=== PATIENT | female | born 1935 | race Caucasian/White ===

== ENCOUNTER 2022-01-03 12:09 | Emergency (ER) | payer OTHER, SELFPAY ==
[2022-01-03 12:26] VITALS: BP 131/57; PULSE 74; TEMP 36.4; O2SAT 97; BMI 16.1
--- NOTE | 2022-01-03 12:45 | ED.GENADULT ---
HPI - General Adult General Time Seen by Provider: 12:45 Date Seen: 01/03/22 Chief complaint: Nausea/Vomiting Stated complaint: Vomiting from medication Time Seen by Provider: 01/03/22 12:10 Source: patient Mode of arrival: ambulatory Limitations: no limitations History of Present Illness HPI narrative: Patient is a 86-year-old female has started an antibiotic yesterday for urinary tract infection. [facility] She was started on a stronger cephalosporin, she has had only allergies sulfa in the past. Since taking the medicine she felt nauseated vomited. She feels better now on completely back to normal. She is interested in a different antibiotic for urinary tract infection. She states she left a urine and this was analyzed in the clinic. She denies flank pain fever, rigors, chills. She presents with her son. Related Data Home Medications Medication Instructions Recorded Confirmed esomeprazole magnesium 40 mg mg 01/03/22 capsule,delayed release oxycodone 5 mg tablet mg 01/03/22 tramadol 50 mg tablet mg 01/03/22 Previous Rx's Medication Instructions Recorded ciprofloxacin 250 mg/5 mL oral 250 mg (5 mL) PO BID urinary 7 01/03/22 suspension days #70 mL nitrofurantoin 100 mg PO BID #14 caps 01/03/22 monohydrate/macrocrystals 100 mg capsule (Macrobid) Allergies Allergy/AdvReac Type Severity Reaction Status Date / Time Sulfa (Sulfonamide Allergy Unknown Verified 01/03/22 12:30 Antibiotics) Review of Systems Status of ROS: Reports: 6 or more systems reviewed and unremarkable except as noted in History and below PFSH PFS Social History Smoking Status: Never smoker Do you use any of these nicotine containing products: None Second hand tobacco smoke exposure: No How often do you have a drink containing alcohol: never How often do you have six or more drinks on one occasion: Never AUDIT-C Alcohol total score: 0 Non-prescribed substance use: denies use Exam Narrative: Exam Narrative: Objective: Vital signs unremarkable afebrile Abdomen benign soft no flank tenderness Extremities good perfusion Patient is alert orient x3, very thin Const: Vital Signs, click to edit/add: Vital Signs - 24 hr 01/03/22 12:26 Temperature 97.6 F Pulse Rate [Left] 74 Blood Pressure [Ri ght Upper Arm] 131/57 L Pulse Oximetry 97 Oxygen Delivery Me thod Room Air Course Vital Signs Vital signs: Initial Vital Signs Temperature 97.6 F 01/03/22 12:26 Temperature Source Temporal Artery Scan 01/03/22 12:26 Pulse Rate 74 01/03/22 12:26 Blood Pressure 131/57 L 01/03/22 12:26 Blood Pressure Mean 81 01/03/22 12:26 Blood Pressure Position Sitting 01/03/22 12:26 Pulse Oximetry 97 01/03/22 12:26 Oxygen Delivery Method 01/03/22 12:26 Vital Signs Temperature 97.6 F 01/03/22 12:26 Pulse Rate 74 01/03/22 12:26 Blood Pressure 131/57 L 01/03/22 12:26 Pulse Oximetry 97 01/03/22 12:26 Oxygen Delivery Method 01/03/22 12:26 Temperature 97.6 F 01/03/22 13:29 Pulse Rate 74 01/03/22 13:29 Blood Pressure 131/57 L 01/03/22 13:29 Pulse Oximetry 97 01/03/22 12:26 Oxygen Delivery Method 01/03/22 12:26 Medical Decision Making MDM Narrative Medical decision making narrative: Patient a GI upset and vomiting from a cephalosporin orally, at this point could be related to UTI or could be related to the medication. She seems asympt omatic at present. Will give Macrodantin 100 b.i.d. x7 days, will start a dose in the a ER infection of does regimen to her pharmacy. Fluids light diet follow-up with clinic as needed or return to ED as problems or concerns Addendum: The patient is unable to swallow a Macrodantin pill, will see of Cipro can be crushed or in liquid form Discharge Plan Discharge Clinical Impression: Urinary tract infection Patient Disposition: Home w/ Parent or Adult Condition: Stable Additional Instructions: Rest light activity,cipro b.i.d. x7 days, light diet. Update Primary Care as needed, return to ED as needed Activity Level: Light activity Discharge Diet: Low Fat/Low Cholesterol Prescriptions: New nitrofurantoin monohyd/m-cryst [Macrobid] 100 mg capsule 100 mg PO BID Qty: 14 0RF Rx Instructions: must administer with a meal/food ciprofloxacin 250 mg/5 mL suspension,microcapsule recon 250 mg PO BID 7 Days Qty: 70 0RF No Action tramadol 50 mg tablet Label Comments: TAKE 1 TABLET BY MOUTH 3 TIMES DAILY IF NEEDED FOR PAIN. esomeprazole magnesium 40 mg capsule,delayed release(DR/EC) Label Comments: TAKE 1 CAPSULE BY MOUTH EVERY DAY BEFORE A MEAL oxycodone 5 mg tablet Label Comments: TAKE 1 TABLET (5 MG) BY MOUTH EVERY 6 HOURS NEEDED FOR SEVERE PAIN. Follow Up/Referrals: Ngozi Harper MD [Primary Care Provider] - Stand Alone [facility]
[2022-01-03] MEDS: CIPROFLOXACIN 250 MG TABLET PO (13:21)
[2022-01-03 13:29] VITALS: BP 131/57; PULSE 74; TEMP 36.4
== END 2022-01-03 13:30 | disposition home or self-care (01) ==
LOC: ED 13:03
PROVIDERS: Emergency Provider Family Medicine; PCP Family Medicine
DX: N39.0 Urinary tract infection, site not specified (principal)
CPT/HCPCS: 99283; 99284; A9270

== ENCOUNTER 2022-06-30 12:31 | Emergency (ER) | payer OTHER, SELFPAY ==
[2022-06-30 12:55] VITALS: BP 164/81; PULSE 76; RESP 18; TEMP 36.6; O2SAT 94
--- NOTE | 2022-06-30 13:07 | CRLHL7_ITS ---
For Patients: As a result of the Century Cures Act, medical imaging exams and procedure reports are released immediately into your electronic medical record. You may view this report before your referring provider. If you have questions, please contact your health care provider. Indication: Fall Technique: Volumetric multidetector CT images of the head were obtained without the administration of low osmolar intravenous contrast. Comparison: CT head February 02, 2021 Findings: There is no intra-axial or extra-axial fluid collection. There is no mass effect or midline shift. There is age-related cortical atrophy with moderate sulcal widening and ex vacuo dilatation of the lateral ventricles. There are chronic small vessel disease changes in the subcortical and periventricular white matter without lost barker-white differentiation. The orbits and their contents are grossly within normal limits. The bony calvarium is grossly intact. The paranasal sinuses are clear. The mastoid air cells are well aerated. Impression: Stable age-related and chronic small-vessel disease changes of the brain without acute intracranial abnormality. Please note that all CT scans at this facility use dose modulation, iterative reconstruction, and/or weight-based dosing when appropriate to reduce radiation dose to as low as reasonably achievable. Dictated by Geo Ascencio MD @ 06/30/2022 2:42:48 PM (Electronically Signed)
--- NOTE | 2022-06-30 13:07 | CRLHL7_ITS ---
For Patients: As a result of the Century Cures Act, medical imaging exams and procedure reports are released immediately into your electronic medical record. You may view this report before your referring provider. If you have questions, please contact your health care provider. Indication: Injury Technique: A total of three views of the right shoulder were acquired. Comparison: None Findings: Bones: Demineralized osseous structures. No visible acute fracture, dislocation or destructive process. Joint spaces: End-stage arthritic process of the right glenohumeral joint Soft tissues: Unremarkable. Impression: No acute fracture, dislocation or destructive process. 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
--- NOTE | 2022-06-30 13:07 | CRLHL7_ITS ---
For Patients: As a result of the Century Cures Act, medical imaging exams and procedure reports are released immediately into your electronic medical record. You may view this report before your referring provider. If you have questions, please contact your health care provider. INDICATION: Fall TECHNIQUE: Single view pelvis COMPARISONS: Single pelvis October 04, 2018 FINDINGS: The left femoral head is seated in the acetabulum. 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 Mildly limited exam due to pelvic angulation and obliquity. No evidence of obvious acute displaced fracture with likely chronic changes of the left superior inferior pubic rami. Moderate degenerative change of the left hip. Moderate to severe degenerative changes of the partially visualized lumbar spine with severe dextroscoliosis. Moderate to severe stool seen throughout the colon. IMPRESSION: Mildly limited exam due to patient angulation and pelvic tilt. Moderate degenerative change of the left hip. Old traumatic changes of the left superior and inferior pubic rami. Otherwise, no evidence of acute osseous abnormality. Dictated by Geo Ascencio MD @ 06/30/2022 3:01:29 PM (Electronically Signed)
--- NOTE | 2022-06-30 13:10 | ED.GENADULT ---
HPI - General Adult General Time Seen by Provider: 13:10 Date Seen: 06/30/22 Chief complaint: Extremity Pain/Injury, Lower Stated complaint: Fall Time Seen by Provider: 06/30/22 12:35 Source: patient Mode of arrival: wheelchair Limitations: physical limitation History of Present Illness HPI narrative: Patient is an 86 year white female who lives with her son-in-law and daughter. She apparently tripped today and fell she injured the right side of her head she has got a bruise. Over her temporal area. The patient reports right shoulder pain and right hip pain. She apparently has a replacement of the right hip. She has been chronically thin. Has gained weight since she has been with her son-in-law and daughter. She reports that she walks with a walker.. She has had no other specific symptoms recently no chest pain, breathing problem, fevers chills, she simply lost her balance and tripped. Related Data Home Medications Medication Instructions Recorded Confirmed esomeprazole magnesium 40 mg mg 01/03/22 capsule,delayed release oxycodone 5 mg tablet mg 01/03/22 tramadol 50 mg tablet mg 01/03/22 Previous Rx's Medication Instructions Recorded ciprofloxacin 250 mg/5 mL oral 250 mg (5 mL) PO BID urinary 7 01/03/22 suspension days #70 mL nitrofurantoin 100 mg PO BID #14 caps 01/03/22 monohydrate/macrocrystals 100 mg capsule (Macrobid) Allergies Allergy/AdvReac Type Severity Reaction Status Date / Time Sulfa (Sulfonamide Allergy Unknown Verified 01/03/22 12:30 Antibiotics) Review of Systems Status of ROS: Reports: 6 or more systems reviewed and unremarkable except as noted in History and below PFSH PFS Social History Smoking Status: Never smoker Do you use any of these nicotine containing products: None Second hand tobacco smoke exposure: No How often do you have a drink containing alcohol: never How often do you have six or more drinks on one occasion: Never AUDIT-C Alcohol total score: 0 Non-prescribed substance use: denies use service: No Exam Narrative: Exam Narrative: Objective: Patient's vital signs look largely unremarkable slightly of a systolic pressure In general she is cachectic appearing very thin, alert orient x3, no cyanosis HEENT shows a bruise over her right temporal area no palpable step-off, neck is supple nontender, patient denies any loss of conscious with the fall Chest clear Heart rhythm regular 2/6 out murmur occasional ectopic beat noted Abdomen benign soft Pelvis is stable she has got actually fairly full range of motion of her right hip but she complains of some pain in that area complains of pain that radiates a little bit down her thigh as well proximally. Good peripheral perfusion noted Skin warm and dry patient is very cachectic and thin Const: Vital Signs, click to edit/add: Vital Signs - 24 hr 06/30/22 12:55 Temperature 97.8 F Pulse Rate [Right Pulse Oximeter] 76 Respiratory Rate 18 Blood Pressure [Ri ght Upper Arm] 164/81 H Pulse Oximetry 94 Oxygen Delivery Me thod Room Air Course Vital Signs Vital signs: Initial Vital Signs Temperature 97.8 F 06/30/22 12:55 Temperature Source Temporal Artery Scan 06/30/22 12:55 Pulse Rate 76 06/30/22 12:55 Respiratory Rate 18 06/30/22 12:55 Blood Pressure 164/81 H 06/30/22 12:55 Blood Pressure Mean 108 06/30/22 12:55 Blood Pressure Position Sitting 06/30/22 12:55 Pulse Oximetry 94 06/30/22 12:55 Oxygen Delivery Method Room Air 06/30/22 12:55 Vital Signs Temperature 97.8 F 06/30/22 12:55 Pulse Rate 76 06/30/22 12:55 Respiratory Rate 18 06/30/22 12:55 Blood Pressure 164/81 H 06/30/22 12:55 Pulse Oximetry 94 06/30/22 12:55 Oxygen Delivery Method Room Air 06/30/22 12:55 Temperature 97.8 F 06/30/22 12:55 Pulse Rate 76 06/30/22 12:55 Respiratory Rate 18 06/30/22 12:55 Blood Pressure 164/81 H 06/30/22 12:55 Pulse Oximetry 94 06/30/22 12:55 Oxygen Delivery Method Room Air 06/30/22 12:55 Medical Decision Making [facility] Narrative Medical decision making narrative: Patient is an 86 year white female very cachectic, very frail who presents with a fall, mild right-sided head contusion, right shoulder pain and right hip pain. She has an examination that shows very cachectic body, she has limited range of motion right shoulder but it does not appear dislocated, but she has got significant soft tissue loss from cachexia. The patient has some pain in her right hip as well. Will get a x-ray of her right shoulder her pelvis for the right hip, and a head CT scan. This was discussed with the patient and with her son-in-law. Disposition pending findings above Addendum: Patient is feeling okay at this point, she has some right hip discomfort, but she is able to move her hip fairly fully. Her x-ray looks pretty unremarkable though it is a angulated view. Her shoulder x-ray shows severe degenerative change but I do not see any fracture dislocation, his head CT looks largely unremarkable as well. Will await Radiology overreading of her films. Will also get a road test were she is able to see if we can get her to walk on her walker. She was walking earlier. I think she would like to try and go home at this point and her son-in-law feel she can try and go home as well. Disposition pending her ability to walk and assessment of her ambulatory status. Addendum: The patient and her family wanted trying to take her home at this point. Radiology reads no obvious fracture dislocation in her hip, my shoulder review of her x-ray looks unremarkable. Her head CT looks like chronic changes. She was able to walk about 30 ft she had occasional pop walking where she had no discomfort or hip. No discomfort in her leg. Family would like to try and take her home, offered additional x-rays imaging but they declined. Tylenol as needed for discomfort, recheck with primary care as needed. They can use a wheelchair at home for a couple of days and then advanced a walker as tolerated. Discharge Plan Discharge Clinical Impression: Fall Patient Disposition: Home w/ Parent or Adult Condition: Stable Instructions: Fall Prevention (ED) Additional Instructions: Light activity, wheelchair as needed, use a walker when able. Return as needed. Tylenol recommended for discomfort. Activity Level: Light activity Discharge Diet: Regular Prescriptions: No Action tramadol 50 mg tablet Patient Comments: TAKE 1 TABLET BY MOUTH 3 TIMES DAILY IF NEEDED FOR PAIN. esomeprazole magnesium 40 mg capsule,delayed release(DR/EC) Patient Comments: TAKE 1 CAPSULE BY MOUTH EVERY DAY BEFORE A MEAL oxycodone 5 mg tablet Patient Comments: TAKE 1 TABLET (5 MG) BY MOUTH EVERY 6 HOURS NEEDED FOR SEVERE PAIN. nitrofurantoin monohyd/m-cryst [Macrobid] 100 mg capsule 100 mg PO BID Qty: 14 0RF Rx Instructions: must administer with a meal/food ciprofloxacin 250 mg/5 mL suspension,microcapsule recon 250 mg PO BID 7 Days Qty: 70 0RF Follow Up/Referrals: Ngozi Harper MD [Primary Care Provider] - Stand Alone [facility]
== END 2022-06-30 15:29 | disposition home or self-care (01) ==
PROVIDERS: Emergency Provider Family Medicine; PCP Family Medicine
DX: M25.511 Pain in right shoulder (principal); M25.551 Pain in right hip; W01.0XXA Fall on same level from slipping, tripping and stumbling without subsequent striking against object, initial encounter
CPT/HCPCS: 70450; 72170; 73030; 99283; 99284; 99285

== ENCOUNTER 2022-12-07 10:00 | Emergency (ER) | payer OTHER, SELFPAY ==
[2022-12-07 10:14] VITALS: BP 114/69; PULSE 91; RESP 20; TEMP 36.2; O2SAT 96
[2022-12-07 10:49] VITALS: O2SAT 91
--- NOTE | 2022-12-07 11:15 | ED.GENADULT ---
HPI - General Adult General Date Seen: 12/07/22 Chief complaint: Nausea/Vomiting Stated complaint: Vomiting bile Time Seen by Provider: 12/07/22 10:33 Source: patient and family Mode of arrival: ambulatory Limitations: no limitations History of Present Illness HPI narrative: Patient is an 87-year-old woman who apparently had some vomiting yesterday until about 3:00 a.m.. Vomiting has resolved. She has not been doing a good job of rehydrating, she is extremely thin at baseline, I do not think she eats or drinks very much in general. She says she has continued to be nauseated today so she has not taken very much in. They called the clinic and they were advised to bring her in. Her son-in-law who is with her says that she has had some lability of her blood pressures which have varied between 97 systolic and 180 systolic recently. This was of concern to them as well. She has not had diarrhea, no black or bloody stools, no fever, no abdominal pain. She is reportedly dealing with a couple of different skin cancers as well. Related Data Home Medications Medication Instructions Recorded Confirmed esomeprazole magnesium 40 mg mg 01/03/22 capsule,delayed release oxycodone 5 mg tablet mg 01/03/22 tramadol 50 mg tablet mg 01/03/22 erythromycin 5 mg/gram (0.5 %) eye ophthalmic (eye-left) BID 12/07/22 ointment Previous Rx's Medication Instructions Recorded ciprofloxacin 250 mg/5 mL oral 250 mg (5 mL) PO BID urinary 7 01/03/22 suspension days #70 mL nitrofurantoin 100 mg PO BID #14 caps 01/03/22 monohydrate/macrocrystals 100 mg capsule (Macrobid) Allergies Allergy/AdvReac Type Severity Reaction Status Date / Time Sulfa (Sulfonamide Allergy Unknown Verified 01/03/22 12:30 Antibiotics) Review of Systems Status of ROS: Reports: 6 or more systems reviewed and unremarkable except as noted in History and below [facility] Social History Smoking Status: Never smoker Do you use any of these nicotine containing products: None Second hand tobacco smoke exposure: No How often do you have a drink containing alcohol: never How often do you have six or more drinks on one occasion: Never AUDIT-C Alcohol total score: 0 Non-prescribed substance use: denies use service: No Exam Narrative: Exam Narrative: Vital signs reviewed. Of note, the blood pressure cuff on her is a child size, the automatic machine simply cannot get a blood pressure I think due to her cachectic body habitus. Head: Skeletal. 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 ENT: Mucous membranes are little dry Heart: Regular rate and rhythm without murmur Lungs: Clear. Abdomen: Scaphoid, nontender. Extremities: Cachectic. Skin: Warm and dry. Const: Vital Signs, click to edit/add: Vital Signs - 24 hr 12/07/22 10:14 12/07/22 10:49 12/07/22 11:48 Temperature 97.2 F L Pulse Rate [Right Pulse Oximeter] 91 Respiratory Rate 20 Blood Pressure [Le ft Upper Arm] 114/69 106/72 Pulse Oximetry 96 91 Oxygen Delivery Me thod Room Air Course Course ED Course: Will go ahead and check some electrolytes, hydrate her, give some Zofran and make sure that she is able to keep some fluids down. It does not sound as if she is still vomiting, this is self-limited, may be viral, her abdominal exam is benign and given that symptoms have stopped my suspicion for something such as obstruction or other surgical process is low. Will see how labs look before deciding whether imaging is needed. Labs are overall reassuring. Her white blood cell count is normal at 9.3. Hemoglobin is normal. Her initial potassium came back at 6.2 but it was hemolyzed, repeat is 5. Creatinine was normal. CO2 mildly low at 18. She had a L normal saline here. She did not have any vomiting while here. Again, symptoms had resolved prior to coming to the ER. I think it is reasonable to let her go home, continue hydration at home. Discussed if she has worsening symptoms, develops fevers, abdominal pain, recurrence of vomiting she can return to the emergency department at any time. Otherwise follow up with primary care doctor joseline. further concerns. Continue to work on hydration as able at home. Vital Signs Vital signs: Initial Vital Signs Temperature 97.2 F L 12/07/22 10:14 Temperature Source Temporal Artery Scan 12/07/22 10:14 Pulse Rate 91 12/07/22 10:14 Respiratory Rate 20 /11/23 10:14 Blood Pressure 114/69 12/07/22 10:14 Blood Pressure Mean 84 12/07/22 10:14 Blood Pressure Position Sitting 12/07/22 10:14 Pulse Oximetry 96 12/07/22 10:14 Oxygen Delivery Method Room Air 12/07/22 10:14 Vital Signs Temperature 97.2 F L 12/07/22 10:14 Pulse Rate 91 12/07/22 10:14 Respiratory Rate 12/07/22 10:14 Blood Pressure 114/69 12/07/22 10:14 Pulse Oximetry 96 12/07/22 10:14 Oxygen Delivery Method Room Air 12/07/22 10:14 Temperature 97.2 F L 12/07/22 10:14 Pulse Rate 91 12/07/22 10:14 Respiratory Rate 12/07/22 10:14 Blood Pressure 106/72 12/07/22 11:48 Pulse Oximetry 91 12/07/22 10:49 Oxygen Delivery Method Room Air 12/07/22 10:14 Medical Decision Making Lab Data Labs: Lab Results 12/07/22 12/07/22 Range/Units 11:15 12:36 WBC 9.26 (4.50-11.00) K/uL RBC 4.22 (4.00-5.20) m/uL Hgb 14.0 (12.0-16.0) gm/dL Hct 44.6 (33.0-51.0) % MCV 106 H (80-100) fL MCH 33 (26-34) pg MCHC 31 L (32-36) gm/dL RDW Coeff of Jojo 15.7 H (11.5-15.5) % Plt Count 272 (140-440) K/uL Neut % (Auto) 88.2 H (42.0-72.0) % Lymph % (Auto) 5.4 L (20-44) % [place] % (Auto) 5.7 (0.0-11.0) % Eos % (Auto) 0.1 (0.0-7.0) % Baso % (Auto) 0.4 (0.0-3.0) % Neut # (Auto) 8.20 H (1.7-7.0) K/uL Lymph # (Auto) 0.50 L (0.90-2.90) K/uL [place] # (Auto) 0.50 (0.00-0.90) K/UL Eos # (Auto) 0.01 (0.00-0.50) K/uL Baso # (Auto) 0.04 (0.00-0.30) K/uL Abs Immat Gran (auto) 0.02 (0.00-0.30) K/uL Imm/Tot Granulo (auto) 0.2 % Sodium 135 (135-149) mmol/L Potassium 6.2 H* 5.0 (3.6-5.1) mmol/L Chloride 103 (96-114) mmol/L Carbon Dioxide 18 L (20-32) mmol/L Anion Gap 14 (7-15) mEq/L BUN 21 (7-30) mg/dL Creatinine 0.7 (0.5-1.5) mg/dL Estimated GFR 85 ml/min Glucose 97 (60-115) mg/dL Calcium 10.7 H (8.4-10.6) mg/dL Magnesium 2.0 (1.5-2.6) mg/dL Discharge Plan Discharge Clinical Impression: Dehydration Patient Disposition: Home, Self-Care Condition: Improved Instructions: Dehydration (ED) Additional Instructions: Continue to work on hydration at home. Labs today look otherwise pretty good, return if you are not able to maintain hydration, developed significant abdominal pain, fevers, or continued to have vomiting. Prescriptions: No Action tramadol 50 mg tablet Patient Comments: TAKE 1 TABLET BY MOUTH 3 TIMES DAILY IF NEEDED FOR PAIN. esomeprazole magnesium 40 mg capsule,delayed release(DR/EC) Patient Comments: TAKE 1 CAPSULE BY MOUTH EVERY DAY BEFORE A MEAL oxycodone 5 mg tablet Patient Comments: TAKE 1 TABLET (5 MG) BY MOUTH EVERY 6 HOURS NEEDED FOR SEVERE PAIN. nitrofurantoin monohyd/m-cryst [Macrobid] 100 mg capsule 100 mg PO BID Qty: 14 0RF Rx Instructions: must administer with a meal/food ciprofloxacin 250 mg/5 mL suspension,microcapsule recon 250 mg PO BID 7 Days Qty: 70 0RF erythromycin 5 mg/gram (0.5 %) ointment ophthalmic (eye-left) BID Follow Up/Referrals: Ngozi Harper MD [Primary Care Provider] - Stand Alone [facility] Inst[facility]
[2022-12-07] MEDS: 0.9 % SODIUM CHLORIDE 1000 ml 1,000 ML IV (11:22)
[2022-12-07] MEDS: ONDANSETRON 2 MG/ML inj 4 MG IVP (11:22)
--- NOTE | 2022-12-07 11:33 | ED.NURSE ---
MD gave verbal OK for patient to take home dose of Tramadol.
[2022-12-07 11:48] VITALS: BP 106/72
[2022-12-07 11:57] LABS: Basophils Absolute Auto 0.04 K/uL (0.00-0.30); Basophils Percent Auto 0.4 % (0.0-3.0); Eosinophils Absolute Auto 0.01 K/uL (0.00-0.50); Eosinophils Percent Auto 0.1 % (0.0-7.0); Hematocrit 44.6 % (33.0-51.0); Immature Granulocytes Abs Auto 0.02 K/uL (0.00-0.30); Immature Granulocytes Pct Auto 0.2 %; Lymphocytes Percent Auto 5.4 % (20-44); Mean Corpuscular HGB Conc 31 gm/dL (32-36); Mean Corpuscular Hemoglobin 33 pg (26-34); Mean Corpuscular Volume 106 fL (80-100); Monocytes Percent Auto 5.7 % (0.0-11.0); Neutrophils Percent Auto 88.2 % (42.0-72.0); Platelet Count* 272 K/uL (140-440); RDW Coefficient of Variation % 15.7 % (11.5-15.5); Red Blood Count 4.22 m/uL (4.00-5.20); White Blood Count* 9.26 K/uL (4.50-11.00)
[2022-12-07 11:58] LABS: Chloride* 103 mmol/L (96-114); Sodium* 135 mmol/L (135-149)
[2022-12-07 12:00] LABS: Creatinine* 0.7 mg/dL (0.5-1.5); Estimated Glomerular Filt Rate 85 ml/min
[2022-12-07 12:01] LABS: Anion Gap 14 mEq/L (7-15); Blood Urea Nitrogen* 21 mg/dL (7-30); Calcium* 10.7 mg/dL (8.4-10.6); Carbon Dioxide* 18 mmol/L (20-32); Glucose* 97 mg/dL (60-115)
[2022-12-07 12:06] LABS: Slide Review Reflex No
[2022-12-07 12:08] LABS: Potassium* 6.2 mmol/L (3.6-5.1)
== END 2022-12-07 13:44 | disposition home or self-care (01) ==
PROVIDERS: Emergency Provider Emergency Medicine; PCP Family Medicine
DX: E86.0 Dehydration (principal); R11.2 Nausea with vomiting, unspecified
CPT/HCPCS: 36415; 80048; 83735; 84132; 85025; 93005; 96374; 99283; 99284; J2405; J7030